=== PATIENT | male | born 1955 | race Caucasian/White ===

== ENCOUNTER → 2020-03-31 | Outpatient (CLI) | payer MEDICARE ==
--- NOTE | 2020-03-31 16:36 | Diagnostic Imaging Report ---
INDICATION: Follow-up left ureteral stone. TIME OF EXAM: 3:33 p.m. COMPARISON: Correlation is made with prior radiograph from 03/24/2009. FINDINGS: No definite calculi overlie the renal shadows. No definite calculus along the course of the ureters is seen. Left pelvic calcifications are noted, likely phleboliths. Bowel gas pattern is unremarkable. There are surgical clips in the right upper quadrant. IMPRESSION: No definite urinary tract calculus is detected. Dictated by: Dictated on workstation # [id number]
== END ==
LOC: RAD 14:52
PROVIDERS: ATTEND Urology
DX: N20.1 Calculus of ureter (principal)
CPT/HCPCS: 74018

== ENCOUNTER 2020-04-04 06:51 | Outpatient (CLI) | payer MEDICARE ==
[~2020-04-04] VITALS: Ht 172.7 cm; Wt 95.5 kg
== END 2020-04-04 14:35 | disposition home or self-care (01) ==
LOC: PREOP 06:51
PROVIDERS: ATTEND Urology
DX: Z01.818 Encounter for other preprocedural examination (principal)

== ENCOUNTER 2020-04-05 06:49 | Day surgery (SDC) | payer MEDICARE ==
[2020-04-05] VITALS (10 sets, daily range): BP systolic 139–160; BP diastolic 86–100
[~2020-04-05] VITALS: Ht 172 cm; Wt 95.5 kg
--- NOTE | 2020-04-05 07:04 | Progress Note-Pre Operative ---
Pre-Operative Progress Note H&P Reviewed The H&P was reviewed, patient examined and no changes noted. Date Seen by Provider: Apr 05, 2020 Time Seen by Provider: 07:04 Date H&P Reviewed: Apr 05, 2020 Time H&P Reviewed: 07:04 Pre-Operative Diagnosis: LT URETERAL STONE KISHAN CRUZ MD Apr 05, 2020 07:04
[2020-04-05] MEDS ORDERED: cefTRIAXone FOR IV USE 1,000 MG in WATER (STERILE) FOR INJECTION 10 ML IV ONE (07:15)
[2020-04-05] MEDS ORDERED: proPOfol 200 MG/20 ML (DIPRIVAN) VIAL IV ONE (07:27)
[2020-04-05] MEDS ORDERED: SEVOFLURANE (ULTANE) 15 ML INHAL SOLN ONE ×2 (07:28→08:24)
[2020-04-05] MEDS ORDERED: LIDOCAINE PF 2% 5 ML (XYLOCAINE) VIAL ONE (07:28)
[2020-04-05] MEDS ORDERED: MIDAZOLAM 2 MG/2 ML (VERSED) VIAL ONE (07:31)
[2020-04-05] MEDS ORDERED: fentaNYL INJECTION 100 MCG/2 ML AMP ONE ×2 (07:31→09:19)
[2020-04-05] MEDS ORDERED: WATER (STERILE) FOR INJECTION 10 ML ONE (07:32)
[2020-04-05] MEDS ORDERED: cefTRIAXone 1,000 MG IV (ROCEPHIN) VIAL ONE (07:32)
[2020-04-05] MEDS ORDERED: ONDANSETRON 4 MG/2 ML (SDV) Z0FRAN ONE (07:35)
[2020-04-05] MEDS: LACTATED RINGERS 1,000 ML IV PRN ×3 (07:37→09:30)
--- NOTE | 2020-04-05 07:37 | Diagnostic Imaging Report ---
INDICATION: Left ureteral stone. TECHNIQUE: Single supine view of the abdomen 6:57 AM CORRELATION STUDY: 03/31/2020 FINDINGS: Nonobstructive appearing bowel gas pattern. There is no definitive calcification over the renal silhouettes and/or expected course of either ureter. Calcifications in the pelvis disproportionately greater on the left appear unchanged, likely phleboliths. Cholecystectomy clips in the right upper quadrant. Density over the right iliac crest, nonspecific. IMPRESSION: 1. No definitive urinary tract calculus. Dictated by: Dictated on workstation # [id number]
[2020-04-05] MEDS ORDERED: FUROSEMIDE 40 MG/4 ML INJ (LASIX) ONE (08:26)
[2020-04-05] MEDS ORDERED: KETOROLAC 30 MG/ML VIAL ONE (08:26)
[2020-04-05] MEDS ORDERED: ROCURONIUM 10 MG/ML 5 ML SYRINGE IV ONE (09:12)
--- NOTE | 2020-04-05 09:35 | Progress Note-Post Operative ---
Post-Operative Progess Note Surgeon (s)/Industrial Health And Safety Professor (s) Surgeon KISHAN CRUZ MD Industrial Health And Safety Professor: NONE Pre-Operative Diagnosis LT MID URETERAL STONE Post-Operative Diagnosis SAME Procedure & Operative Findings Date of Procedure 04/05/20 Procedure Performed/Findings LT URETEROSCOPY WITH STONE LITHOTRIPSY Anesthesia Type GENERAL Estimated Blood Loss Estimated blood loss (mL): NONE Specimens/Packing Specimens Removed NONE Packing: NONE KISHAN CRUZ MD Apr 05, 2020 09:35
--- NOTE | 2020-04-05 09:37 | Discharge Inst-Urology ---
Discharge Inst-Urology Reconcile Patient Problems Problems Reviewed?: Yes Final Diagnosis LT MID URETERAL STONE Patient Instructions/Follow Up Plan/Assessment/Instructions Please make appointment to been seen in office in 3 weeks. Increase oral fluids for 48 hours and then as needed. Diet and Activity as tolerated. If questions or concerns contact your physician Or seek help at emergency department. KISHAN CRUZ MD Apr 05, 2020 09:37
--- NOTE | 2020-04-05 16:30 | OPERATIVE REPORT ---
DATE OF SERVICE: 04/05/2020 PREOPERATIVE DIAGNOSIS: Left mid ureteral stone. POSTOPERATIVE DIAGNOSES: Left mid ureteral stone. OPERATION PERFORMED: Left ureteroscopy with stone lithotripsy. SURGEON: Prabhjot Cruz MD ANESTHESIA: General. COMPLICATIONS: None. DESCRIPTION OF PROCEDURE: Under satisfactory general anesthesia, the patient in lithotomy position, genitalia were prepped and draped in the usual sterile fashion. Cystoscope was introduced under vision. The anterior urethra was normal. The prostate was mildly enlarged with mild bladder neck obstruction. Bladder was essentially normal except for a sluggish left ureteral efflux. Using the foroblique lens, I dilated the left ureteral orifice intramural portion to accommodate a 6.9 Tamazight semi-rigid ureteroscope. I went up and visualized the stone. There was a good size in the mid ureter and went ahead and completely fragmented it with lithoclast. The fragments were washed down into the bladder. I went beyond the area. There was no further calcifications or fragments, so I removed. The patient tolerated the procedure and anesthesia well and was sent to recovery room in stable condition. Job ID: [id number] DocumentID: [id number] Dictated Date: 04/05/2020 09:39:45 Manufacturing Laborer Date: 04/05/2020 16:29:13 Dictated By: PRABHJOT CRUZ MD
== END 2020-04-05 12:00 | disposition home or self-care (01) ==
LOC: SDC 06:49
PROVIDERS: ATTEND Urology
DX: N13.2 Hydronephrosis with renal and ureteral calculous obstruction (principal); Z11.2 Encounter for screening for other bacterial diseases; Z88.1 Allergy status to other antibiotic agents; Z87.19 Personal history of other diseases of the digestive system
CPT/HCPCS: 74018; 76000; 87081

== ENCOUNTER → 2022-07-19 | Outpatient (CLI) | payer MEDICARE ==
[2022-07-19 13:34] LABS: ABSOLUTE RETIC # 64 10e9/uL (24-90); RETICULOCYTE % 1.37 % (0.50-2.40)
[2022-07-19 13:59] LABS: EOSINOPHILS % (MANUAL) 4 %; LYMPHOCYTES % (MANUAL) 43 %; MONOCYTES % (MANUAL) 7 %; NEUTROPHILS % (MANUAL) 45 %
[2022-07-19 14:00] LABS: RBC MORPH NORMAL; REACTIVE LYMPHOCYTES 1 %
== END ==
LOC: GIR 13:22
PROVIDERS: ATTEND Registered Nurse
DX: G47.10 Hypersomnia, unspecified (principal); D52.9 Folate deficiency anemia, unspecified
CPT/HCPCS: 85007; 85045; 85055